=== PATIENT | female | born 1985 | race Caucasian/White ===

== ENCOUNTER 2017-02-26 08:36 | Emergency (ER) | payer OTHER ==
[~2017-02-26 08:36] MED LIST: LEVO75TA4 PO; YAZ1TAB PO
[2017-02-26] MEDS ORDERED: PRENCHW PO (08:45)
[2017-02-26 10:28] LABS: ALBUMIN 2.7 GM/DL (3.2-5.2); ALBUMIN/GLOBULIN RATIO 0.61 (1.00-1.93); ALKALINE PHOSPHATASE 53 U/L (45-117); ALT/SGPT 46 U/L (12-78); ANION GAP 7 MEQ/L (8-16); AST/SGOT 25 U/L (15-37); BILIRUBIN,DIRECT < 0.1 MG/DL (0.0-0.2); BILIRUBIN,TOTAL 0.4 MG/DL (0.2-1.0); BLOOD UREA NITROGEN 5 MG/DL (7-18); CALCIUM LEVEL 8.7 MG/DL (8.5-10.1); CARBON DIOXIDE LEVEL 28 MEQ/L (21-32); CHLORIDE LEVEL 102 MEQ/L (98-107); CREATININE FOR GFR 0.37 MG/DL (0.55-1.02); GLOMERULAR FILTRATION RATE > 60.0 (>60); GLUCOSE, FASTING 89 MG/DL (70-105); SODIUM LEVEL 137 MEQ/L (136-145); TOTAL PROTEIN 7.1 GM/DL (6.4-8.2)
[2017-02-26 10:42] LABS: BASO % 0.3 % (0.0-1.0); EOS % 0.1 % (0.0-3.0); LYMPH # 1.7 10^3/uL (1.5-4.5); LYMPH % 15.2 % (24.0-44.0); MEAN CORPUSCULAR HEMOGLOBIN 31.9 pg (27.0-33.0); MEAN CORPUSCULAR VOLUME 91.3 fl (80.0-96.0); MONO # 0.7 10^3/uL (0.0-0.8); MONO % 6.5 % (0.0-5.0); NEUTROPHILS # 8.6 10^3/uL (1.8-7.7); NEUTROPHILS % 77.2 % (36.0-66.0); PLATELET COUNT, AUTOMATED 285 10^3/uL (150-450); RED CELL DISTRIBUTION WIDTH 13.4 % (11.5-14.5); WHITE BLOOD COUNT 11.1 10^3/uL (4.0-10.0)
[2017-02-26] MEDS ORDERED: NITR100C2 PO (11:11)
--- NOTE | 2017-02-26 11:26 | REP ---
TWIN OB ULTRASOUND: Real-time ultrasound evaluation of intrauterine twin gestation is performed. Estimated gestational age 16 weeks 6 days. EDC 08/07/2017. This is a diamniotic monochorionic twin gestation. Placenta posterior and grade 0 with no previa or abruption. Cervix is closed and measures 3.1 cm in length. FETUS A: BPD 35 mm 16 weeks 5 days, 46th percentile HC 131 mm 16 weeks 5 days, 42nd percentile AC 108 mm 16 weeks 5 days, 45th percentile FL 22 mm 16 weeks 3 days, 36th percentile HC/AC ratio 1.21 within normal range. Estimated weight 163 grams, 34th percentile. heart rate 153 beats per minute. The lateral ventricles, stomach and bladder are visualized and are grossly unremarkable. position is breech on the material left side. Amniotic fluid subjectively within normal limits. FETUS B: BPD 36 mm 17 weeks 0 days, 56th percentile HC 133 mm 16 weeks 6 days, 49th percentile AC 112 mm 17 weeks 0 days, 53rd percentile FL 21 mm 16 weeks 2 days, 32nd percentile HC/AC ratio 1.19 within normal range. Estimated weight 166 grams, 30th percentile. heart rate 149 beats per minute. Lateral ventricles, stomach and bladder are visualized and are grossly unremarkable. position is transverse with head toward the maternal left side. Amniotic fluid subjectively within normal limits. Signed by Antonio Gayle MD 02/26/2017 05:40 P
== END 2017-02-26 12:07 | disposition home or self-care (01) ==
LOC: M ED 08:36
DX: O23.42 Unspecified infection of urinary tract in pregnancy, second trimester (principal); O99.282 Endocrine, nutritional and metabolic diseases complicating pregnancy, second trimester; E07.9 Disorder of thyroid, unspecified; Z79.899 Other long term (current) drug therapy; Z3A.16 16 weeks gestation of pregnancy; O30.032 Twin pregnancy, monochorionic/diamniotic, second trimester

== ENCOUNTER 2017-05-21 13:28 | Outpatient (CLI) | payer OTHER ==
[~2017-05-21] VITALS: Ht 154.9 cm; Wt 82.7 kg
[~2017-05-21 13:28] MED LIST changes: +NITR100C2 PO; +PRENCHW PO
[2017-05-21] MEDS ORDERED: BETAMETHASONE SOLUSPAN 6MG/ML INJ 5ML (J0702) IM ONE (13:45)
[2017-05-21] MEDS ORDERED: ACET50TA PO (13:52)
[2017-05-21] MEDS ORDERED: RANI1TAB6 PO (13:52)
[2017-05-21 14:07] VITALS: BP 109/66
== END 2017-05-21 14:40 | disposition home or self-care (01) ==
LOC: M LDO 13:28
PROVIDERS: ATTEND Obstetrics & Gynecology
DX: O30.033 Twin pregnancy, monochorionic/diamniotic, third trimester (principal); Z3A.28 28 weeks gestation of pregnancy
CPT/HCPCS: 59025; 96372; J0702

== ENCOUNTER 2017-05-22 16:41 | Outpatient (CLI) | payer OTHER ==
[~2017-05-22] VITALS: Ht 154.9 cm; Wt 84.1 kg
[~2017-05-22 16:41] MED LIST changes: +ACET50TA PO; +RANI1TAB6 PO
[2017-05-22 17:14] VITALS: BP 116/62
--- NOTE | 2017-05-22 19:10 | REPUSA ---
OBSTETRICAL ULTRASOUND INDICATION: OB screening. Decreased movement. FINDINGS: Twin live intrauterine gestation was identified. Diamniotic, monochorionic pregnancies iden tified. heart rate in fetus A measures 150 bpm, and in fetus B measures 124 bpm. The amniotic f luid index was normal. The placenta was right lateral, without evidence of placenta previa. The cervi x measures 2.1 cm in length, and is closed. The fetus was in a cephalic lie. The cervix measures 3.69 cm in length and is closed. Estimated weight is 1023 g. Normal movement, breathing movements and tone are noted within both fetuses. Resistive index of the umbilical artery for fetus A measures 0.67, and for fetus B measures 0.69. FETUS A BIOMETRIC MEASUREMENTS BPD 7.7 cm HC 27.2 cm AC 25.6 cm FL 5.2 cm FETUS A BIOMETRIC MEASUREMENTS BPD 7.3 cm HC 25.7 cm AC 24.5 cm FL 4.8 cm IMPRESSION: 1. Twin live intrauterine . 2. Fetus A measures 29 weeks 2 days, with a heart rate of 150 bpm. Biophysical profile measures 8/8. 3. Fetus B measures 28 weeks 4 days, with a heart rate of 124 bpm. Biophysical profile measures 8/8. 4. No other gross abnormalities.
== END 2017-05-22 19:40 | disposition home or self-care (01) ==
LOC: M LDO 16:41
PROVIDERS: ATTEND Obstetrics & Gynecology
DX: O30.033 Twin pregnancy, monochorionic/diamniotic, third trimester (principal); O36.8130 Decreased fetal movements, third trimester, not applicable or unspecified; O99.282 Endocrine, nutritional and metabolic diseases complicating pregnancy, second trimester; Z3A.29 29 weeks gestation of pregnancy